=== PATIENT | male | born 1945 | race Caucasian/White ===

== ENCOUNTER → 2018-07-18 | Outpatient (CLI) | payer MEDICARE, BC | LOC: M.WC 10:00 | DX: E11.622 Type 2 diabetes mellitus with other skin ulcer (principal); L89.323 Pressure ulcer of left buttock, stage 3; L98.412 Non-pressure chronic ulcer of buttock with fat layer exposed; E11.40 Type 2 diabetes mellitus with diabetic neuropathy, unspecified; E78.00 Pure hypercholesterolemia, unspecified; I10 Essential (primary) hypertension; I25.10 Atherosclerotic heart disease of native coronary artery without angina pectoris; Z95.1 Presence of aortocoronary bypass graft; Z79.4 Long term (current) use of insulin; Z89.421 Acquired absence of other right toe(s); Z86.73 Personal history of transient ischemic attack (TIA), and cerebral infarction without residual deficits; Z79.82 Long term (current) use of aspirin ==

== ENCOUNTER → 2018-07-25 | Outpatient (CLI) | payer MEDICARE, BC | LOC: M.WC 04:56 | DX: E11.622 Type 2 diabetes mellitus with other skin ulcer (principal); L89.323 Pressure ulcer of left buttock, stage 3; L98.411 Non-pressure chronic ulcer of buttock limited to breakdown of skin; E11.40 Type 2 diabetes mellitus with diabetic neuropathy, unspecified; I25.10 Atherosclerotic heart disease of native coronary artery without angina pectoris; I10 Essential (primary) hypertension; Z89.421 Acquired absence of other right toe(s); Z86.73 Personal history of transient ischemic attack (TIA), and cerebral infarction without residual deficits ==

== ENCOUNTER → 2018-08-01 | Outpatient (CLI) | payer MEDICARE, BC | LOC: M.WC 05:01 | DX: E11.622 Type 2 diabetes mellitus with other skin ulcer (principal); L89.323 Pressure ulcer of left buttock, stage 3; L98.412 Non-pressure chronic ulcer of buttock with fat layer exposed; E11.40 Type 2 diabetes mellitus with diabetic neuropathy, unspecified; I10 Essential (primary) hypertension; I25.10 Atherosclerotic heart disease of native coronary artery without angina pectoris; Z89.421 Acquired absence of other right toe(s); Z86.73 Personal history of transient ischemic attack (TIA), and cerebral infarction without residual deficits ==

== ENCOUNTER → 2018-08-08 | Outpatient (CLI) | payer MEDICARE, BC | LOC: M.WC 04:44 | DX: E11.622 Type 2 diabetes mellitus with other skin ulcer (principal); L89.323 Pressure ulcer of left buttock, stage 3; L98.411 Non-pressure chronic ulcer of buttock limited to breakdown of skin; E11.40 Type 2 diabetes mellitus with diabetic neuropathy, unspecified; I10 Essential (primary) hypertension; I25.10 Atherosclerotic heart disease of native coronary artery without angina pectoris; Z89.421 Acquired absence of other right toe(s); Z86.73 Personal history of transient ischemic attack (TIA), and cerebral infarction without residual deficits ==

== ENCOUNTER → 2018-08-15 | Outpatient (CLI) | payer MEDICARE, BC | LOC: M.WC 05:35 | DX: E11.622 Type 2 diabetes mellitus with other skin ulcer (principal); L89.323 Pressure ulcer of left buttock, stage 3; L98.412 Non-pressure chronic ulcer of buttock with fat layer exposed; E11.40 Type 2 diabetes mellitus with diabetic neuropathy, unspecified; E78.00 Pure hypercholesterolemia, unspecified; E66.9 Obesity, unspecified; I10 Essential (primary) hypertension; I25.10 Atherosclerotic heart disease of native coronary artery without angina pectoris; Z68.34 Body mass index [BMI] 34.0-34.9, adult; Z89.421 Acquired absence of other right toe(s); Z86.73 Personal history of transient ischemic attack (TIA), and cerebral infarction without residual deficits ==

== ENCOUNTER → 2018-09-05 | Outpatient (CLI) | payer MEDICARE, BC | LOC: M.WC 08-29 05:16 | DX: E11.622 Type 2 diabetes mellitus with other skin ulcer (principal); L89.323 Pressure ulcer of left buttock, stage 3; L98.411 Non-pressure chronic ulcer of buttock limited to breakdown of skin; E11.40 Type 2 diabetes mellitus with diabetic neuropathy, unspecified; I10 Essential (primary) hypertension; I25.10 Atherosclerotic heart disease of native coronary artery without angina pectoris; Z89.421 Acquired absence of other right toe(s); Z86.73 Personal history of transient ischemic attack (TIA), and cerebral infarction without residual deficits ==

== ENCOUNTER → 2018-09-12 | Outpatient (CLI) | payer MEDICARE, BC | LOC: M.WC 04:50 | DX: E11.622 Type 2 diabetes mellitus with other skin ulcer (principal); L89.323 Pressure ulcer of left buttock, stage 3; L97.411 Non-pressure chronic ulcer of right heel and midfoot limited to breakdown of skin; E11.40 Type 2 diabetes mellitus with diabetic neuropathy, unspecified; E78.00 Pure hypercholesterolemia, unspecified; I10 Essential (primary) hypertension; I25.10 Atherosclerotic heart disease of native coronary artery without angina pectoris; Z89.421 Acquired absence of other right toe(s); Z86.73 Personal history of transient ischemic attack (TIA), and cerebral infarction without residual deficits ==

== ENCOUNTER → 2018-09-19 | Outpatient (CLI) | payer MEDICARE, BC | LOC: M.WC 09-18 10:00 | DX: E11.622 Type 2 diabetes mellitus with other skin ulcer (principal); L89.323 Pressure ulcer of left buttock, stage 3; L98.411 Non-pressure chronic ulcer of buttock limited to breakdown of skin; E11.40 Type 2 diabetes mellitus with diabetic neuropathy, unspecified; E78.00 Pure hypercholesterolemia, unspecified; I10 Essential (primary) hypertension; I25.10 Atherosclerotic heart disease of native coronary artery without angina pectoris; Z89.421 Acquired absence of other right toe(s); Z86.73 Personal history of transient ischemic attack (TIA), and cerebral infarction without residual deficits ==

== ENCOUNTER → 2018-09-26 | Outpatient (CLI) | payer MEDICARE, BC | LOC: M.WC 07:10 | DX: E11.622 Type 2 diabetes mellitus with other skin ulcer (principal); L89.323 Pressure ulcer of left buttock, stage 3; L98.418 Non-pressure chronic ulcer of buttock with other specified severity; E11.40 Type 2 diabetes mellitus with diabetic neuropathy, unspecified; I25.10 Atherosclerotic heart disease of native coronary artery without angina pectoris; I10 Essential (primary) hypertension; Z89.421 Acquired absence of other right toe(s); Z86.73 Personal history of transient ischemic attack (TIA), and cerebral infarction without residual deficits ==

== ENCOUNTER 2020-04-26 16:08 | Inpatient (IN) | payer MEDICARE, BC ==
[~2020-04-26] VITALS: Ht 180.3 cm; Wt 97.1 kg
--- NOTE | ~2020-04-26 | CON ---
[address] [address] CONSULTATION Name: LIANNE JOSHI Room: [address] ADM IN M.R.#: [id number] Admission: 04/26/20 Attend Phys: Elaine Corral Discharge: Date of : 47 Report #: [id number] THIS REPORT FOR: cc: FAM - Family physician unknown FAM - Family physician unknown ~ Godwin Moore DPM DATE OF SERVICE: 04/30/2020 CHIEF COMPLAINT: Followup of ulceration to the right plantar first metatarsal stump with concomitant lower leg cellulitis. Wound culture grew MRSA and Enterococcus faecalis. He is on parenteral linezolid 600 mg q. 12 hours with good tolerance. He is scheduled for cardiac catheterization today. He feels well, stable appetite. He denies fevers, chills, nausea or malaise. His blood cultures were negative x 2. LABORATORY DATA: WBC 7.5, RBC 4.20, hemoglobin 12.5, hematocrit 37.1, platelets 206. BUN 24, creatinine 1.2, glucose 103. PHYSICAL EXAMINATION: Wound to the right plantar foot is improved with less pale slough. There is a red granular bed with no exposed bone or tendon. There is no inflammation to the plantar periwound. The erythema to the right lower leg is substantially decreased and low-grade at this point. Foot is warm with palpable right dorsalis pedis and posterior tibial pulses with no acute vascular embarrassment. IMPRESSION: Resolving cellulitis of right lower extremity with diabetic foot ulceration, growing MRSA/Enterococcus faecalis. PLAN: The wound was cleansed, dried and dressed with Aquacel Ag and bordered foam. I ordered a Darco wound healing system shoe with a Pedorthic inlay from [facility] to be delivered and fitted at the hospital. I will follow the patient during his hospital stay and follow up with him at [facility] after discharge. By: 1520 [id number] Moore DPM /jennifer
[2020-04-26 16:20] VITALS: BP 141/71
[2020-04-26 16:50] LABS: ABSOLUTE LYMPHOCYTES 1.2 thou/uL (0.8-5.3); ABSOLUTE MONOCYTES 1.5 thou/uL (0.0-1.2); BASOPHILS 0.3 %; EOSINOPHILS 0.1 %; HEMATOCRIT 39.8 % (42.0-52.0); HEMOGLOBIN 13.3 gm/dL (14.0-18.0); LYMPHOCYTES 7.9 %; MCHC 33.4 g/dL (28.0-37.0); MCV 89.8 fL (80.0-100.0); MPV 8.7 fl. (7.2-11.1); NUCLEATED RBCS 0 /100WBC; PLATELET COUNT* 198 thou/uL (150-400); POLYS 81.7 %; RBC 4.44 mil/uL (4.50-6.00); RDW-CV 13.7 % (10.5-14.5); WBC 14.7 thou/uL (4.0-11.0)
[2020-04-26 16:59] LABS: CALCIUM 8.7 mg/dL (8.5-10.1); CREATININE 1.8 mg/dL (0.6-1.3); POTASSIUM 4.1 mmol/L (3.5-5.1)
[2020-04-26 17:02] LABS: APTT 26.8 Seconds (25.0-31.3); INR 1.1; PROTIME 11.3 Seconds (9.20-11.50)
[2020-04-26 17:10] LABS: ALBUMIN 2.9 g/dL (3.4-5.0); TOTAL BILIRUBIN 0.5 mg/dL (<0.1-1.0); TOTAL PROTEIN 8.2 g/dL (6.4-8.2)
[2020-04-26 18:57] VITALS: BP 159/71
[2020-04-27 08:00] VITALS: BP 166/82
[2020-04-27] MEDS ORDERED: GABAPENTIN600 M1 PO (08:25)
[2020-04-27] MEDS ORDERED: ADULT ONE DAIL0.4 MG PO (08:25)
[2020-04-27] MEDS ORDERED: LISINOPRIL20 MG PO (08:26)
[2020-04-27] MEDS ORDERED: CARVEDILOL25 MG PO (08:26)
[2020-04-27] MEDS ORDERED: ASA81BEC PO (08:26)
[2020-04-27] MEDS ORDERED: LIPITOR40 MG PO (08:27)
[2020-04-27] MEDS ORDERED: CHLORTHALIDONE25 MG PO (08:28)
[2020-04-27] MEDS ORDERED: HUMALOG100 UNIT/1 SUBQ (08:28)
[2020-04-27] MEDS ORDERED: LANTUS SUBQ (08:28)
[2020-04-27 12:00] VITALS: BP 162/81
--- NOTE | 2020-04-27 14:06 | EKG ---
[place] [address] ELECTROCARDIOGRAM REPORT Name: MADELYNLIANNE Sandhya Room: [address] ADM IN M.R.#: [id number] Admission: 04/26/20 Attend Phys: Kristen Parsons Discharge: Date of : 47 Date of Service: 04/26/20 1622 Report #: [id number] THIS REPORT FOR: //name// [facility] ED Test Date: 2020-04-26 Test Time: 16:22:57 Pat Name: LIANNE JOSHI Department: Room: [facility] Gender: M Billing Specialist: : [id number] Requested By: Stephan Hamm Order Number: [id number] MD: Alexsander Pulido Measurements Intervals Rudolph Rate: 102 P: 75 TN: 173 QRS: -69 QRSD: 139 T: 90 QT: 403 QTc: 526 Interpretive Statements Sinus tachycardia RBBB and LAFB Left ventricular hypertrophy No previous ECG available for comparison Electronically Signed On 04-27-2020 14:06:08 ADOPTION SERVICES MANAGER by Alexsander Pulido [email or web address] <ELECTRONICALLY SIGNED> By: Oziel Pulido MD, [facility] 04/27/20 1406 1622 1622 Oziel Pulido MD, [facility] /EPI
--- NOTE | 2020-04-27 14:09 | CON ---
[address] [address] CONSULTATION Name: LIANNE JOSHI Room: [address] IN M.R.#: [id number] Admission: 04/26/20 Attend Phys: Elaine Corral Discharge: Date of : 47 Report #: [id number] THIS REPORT FOR: cc: FAM - Family physician unknown FAM - Family physician unknown ~ Oziel Pulido MD [facility] CARDIOLOGY CONSULTATION HISTORY OF PRESENT ILLNESS: I was asked by Dr. Parsons to see this 74-year-old white male in cardiology consultation for evaluation and treatment of an elevated troponin. This man came to the Emergency Room at [facility] yesterday with leg pain, nausea and vomiting. He had cellulitis of his right leg that have been present for a couple of weeks. He has insulin-dependent diabetes, and has been seen in wound care for a diabetic ulcer on the bottom of his right foot for about 6 months at [facility]. His complaint was of swelling and redness of the right leg that started in the morning. He had nausea and vomiting for 2 days before coming in. Troponins were 0.13, 0.11, 0.10. The NT-proBNP was 2092. Chest x-ray showed no acute cardiopulmonary disease. His EKG shows sinus tachycardia, right bundle branch block, left anterior fascicular block and left ventricular hypertrophy. X-ray of the foot showed postoperative changes without evidence of acute osseous abnormality or radiographic evidence of acute osteomyelitis. Additionally, this man besides insulin-dependent diabetes mellitus, he has essential hypertension and hypercholesterolemia. He has coronary artery disease, status post coronary artery bypass graft surgery 9 years ago. HOME MEDICATIONS: Include aspirin 81 mg daily, atorvastatin 40 mg daily, carvedilol 25 mg b.i.d., chlorthalidone 25 mg daily, gabapentin 600 mg t.i.d., glargine insulin 40 units at bedtime, lispro insulin sliding scale t.i.d. I believe. He is also on lisinopril 20 mg daily and he takes a multivitamin and mineral tablet daily too. PAST MEDICAL HISTORY: As described above. REVIEW OF SYSTEMS: Negative for some 45 different complaints in 13 different categories except as above. Systems reviewed include central nervous system, general, respiratory, cardiovascular, endocrine, gastrointestinal, genitourinary, hematologic, lymphatic, allergic, immunologic, psychiatric, musculoskeletal, skin, eyes, ears, nose, mouth, and throat. Please see review of system form for details and negative in review of systems. SOCIAL HISTORY: He does not smoke, drink or use illegal drugs. FAMILY HISTORY: [place] [address] CONSULTATION Name: LIANNE JOSHI Room: [address] IN .R.#: [id number] Admission: 04/26/20 Attend Phys: Elaine Corral Discharge: Date of : 47 Report #: [id number] PHYSICAL EXAMINATION: GENERAL: He presents as well-developed, well-nourished white male in no acute distress. VITAL SIGNS: His blood pressure was 166/82, pulse was 88, respirations 16, temperature 98.3. HEENT: His head was atraumatic. Eyes clear. NECK: Supple. There is no jugular venous distention or hepatojugular reflux. Thyroid is not enlarged. There is no adenopathy. SKIN: Warm and dry. Mucous membranes are moist. LUNGS: Clear to auscultation and percussion. HEART: Revealed normal first and second heart sound. There is soft S4. There is no S3. There are no murmurs, rubs, thrills, heaves or gallops. PMI is nondisplaced. ABDOMEN: Soft, flat and nontender. No palpable masses, no organomegaly. EXTREMITIES: Reveal no cyanosis, clubbing or edema. NEUROLOGIC: The patient mentated normally, talked normally, and moved all extremities normally. IMPRESSION: 1. Elevated troponins that are likely nonspecific. He may have chronic troponin elevation. This is likely so-called type 2 infarct. This is really non-infarction, but a stress reaction. Again, he may have chronic elevated troponins. 2. Right foot ulcer. 3. Cellulitis in the right lower leg. 4. Insulin-dependent diabetes mellitus. 5. Hypercholesterolemia. 6. Essential hypertension. 7. Coronary artery disease. 8. Status post coronary artery bypass graft surgery. RECOMMENDATION: He should have a Lexiscan Cardiolite stress test and an echo. Thank you very much for asking me to see the patient. If there are any questions, please feel free to contact me. <ELECTRONICALLY SIGNED> By: Oziel Pulido MD, FACC 04/27/20 1409 1057 [id number]. Alexsander Pulido MD, FACC /nt
[2020-04-27 16:00] VITALS: BP 152/79
[2020-04-27 21:00] VITALS: BP 136/59
[2020-04-27 23:53] LABS: URINE BILIRUBIN NEGATIVE (Negative); URINE BLOOD NEGATIVE (Negative); URINE CLARITY CLEAR; URINE COLOR YELLOW; URINE GLUCOSE-RANDOM 2+ (Negative); URINE KETONES NEGATIVE (Negative); URINE LEUKOCYTES-REFLEX NEGATIVE (Negative); URINE NITRITE-REFLEX NEGATIVE (Negative); URINE PROTEIN TRACE (Negative); URINE SPECIFIC GRAVITY 1.015 (1.005-1.030); URINE UROBILINOGEN 0.2 E.U./dl (0.2-1.0)
[2020-04-28] VITALS: BP 139/62
[2020-04-28 02:05] LABS: GLYCOHEMOGLOBIN (HGB A1C) 10.2 % (4.8-5.6)
[2020-04-28 04:00] VITALS: BP 146/98
[2020-04-28 04:22] LABS: HEMATOCRIT 35.8 % (42.0-52.0); MCH 29.9 pg (26.0-34.0); MCHC 33.4 g/dL (28.0-37.0); MCV 89.5 fL (80.0-100.0); MPV 8.3 fl. (7.2-11.1); RDW-CV 13.3 % (10.5-14.5)
[2020-04-28 04:51] LABS: ALBUMIN 2.4 g/dL (3.4-5.0); CALCIUM 8.2 mg/dL (8.5-10.1); CREATININE 1.2 mg/dL (0.6-1.3); MAGNESIUM 2.1 mg/dL (1.8-2.4); POTASSIUM 3.6 mmol/L (3.5-5.1); TOTAL BILIRUBIN 0.3 mg/dL (<0.1-1.0); TOTAL PROTEIN 6.9 g/dL (6.4-8.2)
[2020-04-28 08:00] VITALS: BP 152/69
--- NOTE | 2020-04-28 14:31 | 2DMMODE ---
[place] [address] 2 D/M-MODE ECHOCARDIOGRAM Name: LIANNE JOSHI Room: [address] ADM IN .R.#: [id number] Admission: 04/26/20 Attend Phys: Kristen Parsons Discharge: Date of : 47 Date of Service: 04/28/20 1431 Report #: [id number] THIS REPORT FOR: cc: FAM - Family physician unknown FAM - Family physician unknown Lianne Moore MD [facility] ~ APPROVED REPORT Study performed: 04/28/2020 10:20:48 EXAM: Comprehensive 2D, Doppler, and color-flow Echocardiogram Patient Location: In-Patient Room #: [facility] Status: routine BSA: 2.20 HR: 75 bpm BP: 146/98 mmHg Rhythm: NSR Other Information Study Quality: Good Indications CAD Elevated Troponin 2D Dimensions IVSd: 13.92 (7-11mm) LVOT Diam: 21.44 (18-24mm) LVDd: 39.99 mm PWd: 11.33 (7-11mm) Ascending Ao: 34.31 (22-36mm) LVDs: 25.58 (25-40mm) Aortic Root: 33.06 mm Volumes Left Atrial Volume (Systole) LA ESV Index: 33.70 mL/m2 Aortic Valve AoV Peak Tio.: 1.33 m/s AO Peak Gr.: 7.09 mmHg LVOT Max P.71 mmHg AO Mean Gr.: 4.34 mmHg LVOT Mean P.39 mmHg LVOT Max V: 1.09 m/s AO V2 VTI: 30.37 cm LVOT Mean V: 0.71 m/s NICOLASA (VTI): 3.03 cm2 LVOT V1 VTI: 25.50 [place] [address] 2 D/M-MODE ECHOCARDIOGRAM Name: LIANNE JOSHI Room: [address] IN .R.#: [id number] Admission: 04/26/20 Attend Phys: Kristen Parsons Discharge: Date of : 47 Date of Service: 04/28/20 1431 Report #: [id number] AI Atlantic: 3.69 m/s2 AI PHT: 314.15 ms Mitral Valve E/A Ratio: 0.98 MV Decel. Time: 207.19 ms MV E Max Tio.: 0.97 m/s MV PHT: 60.09 ms MVA (PHT): 3.66 cm2 TDI E/Lateral E': 12.13 E/Medial E': 16.17 Medial E' Tio.: 0.06 m/s Lateral E' Tio.: 0.08 m/s Pulmonary Valve PV Peak Tio.: 1.27 m/s PV Peak Gr.: 6.43 mmHg Left Ventricle The left ventricle is normal size. There is normal LV segmental wall motion. Mild to moderate concentric left ventricular hypertrophy. Left ventricular systolic function is normal. The left ventricular ejection fraction is within the normal range. LVEF is 60%. Grade I - abnormal relaxation pattern. Right Ventricle The right ventricle is normal size. The right ventricular systolic function is normal. Atria The left atrium size is normal. The right atrium size is normal. Aortic Valve Mild aortic valve sclerosis. Mild aortic regurgitation. There is no aortic valvular stenosis. Mitral Valve Mild mitral annular calcification. Trace mitral regurgitation. No evidence of mitral valve stenosis. Tricuspid Valve The tricuspid valve is normal in structure. Trace tricuspid regurgitation. Unable to assess PA pressure[place] [address] 2 D/M-MODE ECHOCARDIOGRAM Name: LIANNE JOSHI Room: [address] IN [facility]#: [id number] Admission: 04/26/20 Attend Phys: Kristen Parsons Discharge: Date of : 47 Date of Service: 04/28/20 1431 Report #: [id number] The pulmonary valve is normal in structure. Trace pulmonic regurgitation. Great Vessels The aortic root is normal in size. IVC is normal in size and collapses >50% with inspiration. Pericardium There is no pericardial effusion. <Conclusion> The left ventricle is normal size. Mild to moderate concentric left ventricular hypertrophy. Left ventricular systolic function is normal. The left ventricular ejection fraction is within the normal range. LVEF is 60%. Grade I - abnormal relaxation pattern. The right ventricle is normal size. The left atrium size is normal. Mild aortic valve sclerosis. Mild aortic regurgitation. There is no aortic valvular stenosis. Mild mitral annular calcification. Trace mitral regurgitation. No evidence of mitral valve stenosis. The tricuspid valve is normal in structure. IVC is normal in size and collapses >50% with inspiration. There is normal LV segmental wall motion. <ELECTRONICALLY SIGNED> By: Lianne Moore MD, FACC 04/28/20 1431 1431 1431 Lianne Moore MD, FACC /INF
[2020-04-28 17:00] VITALS: BP 162/70
[2020-04-28 20:00] VITALS: BP 142/60
[2020-04-28 23:44] VITALS: BP 177/77
[2020-04-29 04:00] VITALS: BP 160/69
[2020-04-29 04:40] LABS: HEMATOCRIT 37.1 % (42.0-52.0); HEMOGLOBIN 12.5 gm/dL (14.0-18.0); MCH 29.8 pg (26.0-34.0); MCHC 33.7 g/dL (28.0-37.0); MCV 88.4 fL (80.0-100.0); MPV 8.6 fl. (7.2-11.1); RBC 4.2 mil/uL (4.50-6.00); WBC 7.5 thou/uL (4.0-11.0)
[2020-04-29 05:01] LABS: ALBUMIN 2.4 g/dL (3.4-5.0); ALKALINE PHOSPHATASE 83 U/L (46-116); ANION GAP 7 mmol/L (7-16); BUN 24 mg/dL (7-18); CALCIUM 9.5 mg/dL (8.5-10.1); CHLORIDE 101 mmol/L (98-107); CO2 29 mmol/L (21-32); CREATININE 1.2 mg/dL (0.6-1.3); GLUCOSE 103 mg/dL (70-99); MAGNESIUM 1.8 mg/dL (1.8-2.4); POTASSIUM 3.6 mmol/L (3.5-5.1); SGOT 12 U/L (15-37); SGPT 22 U/L (30-65); SODIUM 137 mmol/L (136-145); TOTAL BILIRUBIN 0.4 mg/dL (<0.1-1.0); TROPONIN-I LEVEL <0.06 ng/mL (<0.06)
[2020-04-29 16:58] VITALS: BP 135/72
--- NOTE | 2020-04-29 18:02 | CARDNUC ---
[place] [address] CARDIAC NUCLEAR IMAGING REPORT Name: LIANNE JOSHI Sandhya Room: [address] IN [facility]#: [id number] Admission: 04/26/20 Attend Phys: Kristen Parsons Discharge: Date of : 47 Date of Service: 04/29/20 1801 Report #: [id number] THIS REPORT FOR: cc: FAM - Family physician unknown FAM - Family physician unknown Oziel Pulido MD [facility] ~ APPROVED REPORT Study performed: 04/27/2020 12:00:00 Indication: Elevated troponins, RBBB, N/V, Sinus Tachycardia. Patient Location: In-Patient Room #: [facility] Stress Tech: Belinda Calzada Stress Nurse: Oliva Lomeli RN Ht: 5 ft 11 in Wt: 220 lbs BSA: 2.20 m2 BMI: 30.68 Medical History Medical History: Elevated troponins, CAD s/p CABG, RBBB, N/V, Right leg pain/cellulitis, leg ulcer, foot ulcer, neuropathy, ST, LAFB, LVH, Acute kidney injury, DM II-insulin, HTN, HLD. Medications: Atorvastatin, Carvedilol, ASA 325 Mg, Chlorthalidone, Lisinopril. Allergies: No known drug allergies Cardiac Risk Factors: Age, Diabetes (insulin), HTN, Hyperlipidemia, RBBB, elevated troponins, ST, LAFB, LVH, CAD s/p CABG. Previous Cardiac Procedures: CABG Pretest Chest Pain Characteristics: No chest pain Exercise History: Sedentary Physical Disabilities: Right foot ulcer, right leg ulcer, cellulitis, neuropathy. Meds Held (24 hrs): Carvedilol. Resting Data Rest SPECT myocardial perfusion imaging was performed in supine position 30 minutes following the intravenous injection of 10.1 mCi of Tc-99m Sestamibi. Time of rest injection: 11:50 Date: 04/28/2020 The images were gated to evaluate regional wall motion and calculate left ventricular ejection fraction. Administration Route: IV Administration Site: [place] [address] CARDIAC NUCLEAR IMAGING REPORT Name: LIANNE JOSHI Room: [address]#: [id number] Admission: 04/26/20 Attend Phys: Kristen Parsons Discharge: Date of : 47 Date of Service: 04/29/20 1801 Report #: [id number] Pharmacologic Stress Pharmacologic stress test was performed by injecting Regadenoson 0.4 mg IV push over 10-15 seconds immediately followed by the intravenous injection of 34.1 mCi of Tc-99m Sestamibi. Time of stress injection: 08:45 Date: 04/29/2020 Administration Route: IV Administration Site: Right Arm Heart Rate at time of stress injection: 104 bpm. Gated Stress SPECT was performed 40 minutes after stress injection. The images were gated to evaluate regional wall motion and calculate left ventricular ejection fraction. Prone imaging was performed. Stress Test Details Stress Test: Pharmacologic stress testing performed using 0.4 mg of regadenoson per 5 mL given IV over 10 seconds. Reason for pharmacologic stress test: Right foot ulcer, right leg ulcer, cellulitis, neuropathy.. HR Max Heart Rate (APMHR): 147 bpm Resting HR: 88 bpm Target HR (85% APMHR): 124 bpm Max HR Achieved: 104 bpm % of APMHR: 70 Recovery HR: 102 bpm HR response to stress: Normal HR response to stress BP Resting BP: 116/57 mmHg Max BP: 143/42 mmHg Recovery BP: 108/54 mmHg BP response to stress: Normal blood pressure response to stress. ECG Resting ECG: Normal sinus rhythm with right bundle branch block and left anterior fascicular block Stress ECG: Unchanged from above ST Change: None Arrhythmia: None Recovery ECG: Normal sinus rhythm right bundle branch block left anterior fascicular block Recovery ST Change: None Recovery Arrhythmia: [place] [address] CARDIAC NUCLEAR IMAGING REPORT Name: LIANNE JOSHI Room: [address]#: [id number] Admission: 04/26/20 Attend Phys: Kristen Parsons Discharge: Date of : 47 Date of Service: 04/29/20 1801 Report #: [id number] Reason for Termination: Completed protocol Stress Symptoms: Denied symptoms. Exercise duration: 00 min 00 sec Exercise capacity: 1.00 METs Nurse Comments A 74 year old male inpatient presented for a sitting Lexiscan r/t elevated troponins, CAD s/p CABG. Test well tolerated. Recovery unremarkable. Patient was stable and stated he felt good while escorted via wheelchair to Nuclear Medicine for imaging. Stress ECG Conclusion Clinical: Non-ischemic Non-diagnostic pharmacologic EKG stress due to failure to attain target HR. Study Quality Study: Good Artifact: Mild Soft tissue attenuation artifact Lung Uptake: Normal Study Data At rest, the left ventricular ejection fraction was 66%.. Post stress, the left ventricular ejection was 67%.. SSS: 25 SRS: 16 SDS: 9 TID = 1.01. Perfusion The resting study demonstrated a small mild lateral defect and a small mild inferior defect. The post-rest images demonstrated a moderate in size and moderately severe intensity lateral defect is larger and more severe than seen at rest a moderate in size and mild to moderate anterior defect that is new compared to rest and a small in size and moderate intensity inferior defect that is worse than seen at rest. Prone images were obtained and demonstrate a moderate in size mild to severe intensity lateral defect a small moderate intensity inferior defect and a moderate in size and moderate in severity anterior defect. 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 Additionally there is anterior ischemia that is moderate in size and moderate intensity Images were reviewed [place] [address] CARDIAC NUCLEAR IMAGING REPORT Name: LIANNE JOSHI Room: [address] IN M.R.#: [id number] Admission: 04/26/20 Attend Phys: Kristen Parsons Discharge: Date of : 47 Date of Service: 04/29/201800 Report #: [id number] Wall Motion Normal left ventricular wall motion. Nuclear Conclusion ECG Findings: non-diagnostic Clinical Findings: negative for ischemia Nuclear Findings: positive for ischemia Exercise Capacity: not assessed Left Ventricular Function: normal Risk Study: high There is evidence of multiple areas of ischemia and as such this is a high risk study. <Conclusion> Clinical: Non-ischemic Non-diagnostic pharmacologic EKG stress due to failure to attain target HR. <ELECTRONICALLY SIGNED> By: Oziel Pulido MD, FACC 04/29/201800 00 00 Oziel Pulido MD, FACC /INF
[2020-04-29 20:00] VITALS: BP 132/56
[2020-04-30 00:17] VITALS: BP 110/52
[2020-04-30 08:45] VITALS: BP 133/68
[2020-04-30 12:00] VITALS: BP 109/53
--- NOTE | 2020-04-30 12:38 | CON ---
[address] [address] CONSULTATION Name: LIANNE JOSHI Room: [address] IN .R.#: [id number] Admission: 04/26/20 Attend Phys: Elaine Corral Discharge: Date of : 47 Report #: [id number] THIS REPORT FOR: cc: FAM - Family physician unknown FAM - Family physician unknown ~ Godwin Moore DPM DATE OF SERVICE: 04/28/2020 ADMISSION DIAGNOSIS: Cellulitis, right leg with diabetic foot ulceration. CHIEF COMPLAINT AND HISTORY OF PRESENT ILLNESS: The patient is a 74-year-old male admitted for worsening cellulitis to the right lower extremity with concomitant diabetic plantar foot ulceration. He states the wound has been present for over 6 months, and he has been receiving outpatient treatment at [facility]. He has worn a variety of Pedorthic wound healing shoes for improved offloading. He is currently on parenteral ceftriaxone with no adverse reaction. He denies fevers, chills, nausea, or malaise. He denies right foot pain due to advanced peripheral sensory neuropathy. Wound cultures are negative thus far. X-ray was negative for osteolysis or subcutaneous emphysema. Venous Doppler result is pending, right foot wound culture pending. LABORATORY DATA: WBC 7.0, hemoglobin 12.0, hematocrit 35.8, platelets 137. BUN 34, creatinine 1.2, glucose 145. Hemoglobin A1c 10.2. Albumin 2.4. PHYSICAL EXAMINATION: There is a plantar foot ulcer to the right plantar first metatarsal stump. The wound measures roughly 2.0 x 0.3 cm. There is pale red granulation with the peripheral margin of dry callus. There is no underlying fluctuance/crepitation or expressible fluid. There is no inflammation to the periwound. The right lower leg has advanced erythema consistent with cellulitis that is not contiguous with the plantar foot ulceration. No right popliteal adenopathy or calf pain. No open leg lesions noted. His right foot is pronated with prior partial first and second ray resections with healed incisions. The remaining third, fourth and fifth toes and metatarsals are intact. The right foot is pronated with collapsed arch consistent with a remote Charcot arthropathy. No lesions noted. He has palpable right dorsalis pedis and posterior tibial pulses. No pallor/cyanosis, or signs of acute vascular embarrassment to either lower extremity. IMPRESSION: Diabetic foot ulceration, right plantar foot with lower extremity cellulitis. PLAN: There is no evidence of osteomyelitis or deep tissue and/or deep infection or abscess. I do not anticipate formal surgical [place] [address] CONSULTATION Name: LIANNE JOSHI Room: [address] IN ..#: [id number] Admission: 04/26/20 Attend Phys: Elaine Corral Discharge: Date of : 47 Report #: [id number] operating room. I did perform an excisional wound debridement with a scalpel to remove subcutaneous tissue and peripheral keratosis from the wound. This was an excisional subcutaneous tissue to the level of debridement. The wound was cleansed with saline, dried and dressed with Aquacel Ag and a bordered foam. The patient was instructed to elevate leg and remain nonweightbearing. In terms of outpatient care, he would benefit from a knee walker and a Darco Pedorthic healing shoe for improved offloading. I will consult [facility] to fit him for the Darco Pedorthic healing shoe. <ELECTRONICALLY SIGNED> By: Godwin Moore DPM 04/30/20 1238 0619 [id number] Moore DPM /nt
[2020-04-30 17:26] VITALS: BP 122/56
[2020-04-30 20:00] VITALS: BP 129/64
[2020-05-01] VITALS (14 sets, daily range): BP systolic 121–160; BP diastolic 52–78
[2020-05-01 05:06] LABS: HEMATOCRIT 37.3 % (42.0-52.0); HEMOGLOBIN 12.4 gm/dL (14.0-18.0); MCH 29.7 pg (26.0-34.0); MCHC 33.2 g/dL (28.0-37.0); MCV 89.6 fL (80.0-100.0); MPV 8.2 fl. (7.2-11.1); RBC 4.16 mil/uL (4.50-6.00); RDW-CV 12.9 % (10.5-14.5); WBC 9.2 thou/uL (4.0-11.0)
[2020-05-01 05:20] LABS: ANION GAP 6 mmol/L (7-16); BUN 30 mg/dL (7-18); CALCIUM 9.1 mg/dL (8.5-10.1); CHLORIDE 102 mmol/L (98-107); CHOLESTEROL 96 mg/dL (<200); CO2 30 mmol/L (21-32); CREATININE 1.6 mg/dL (0.6-1.3); GLUCOSE 110 mg/dL (70-99); HDL CHOLESTEROL 23 mg/dL (>40); LDL CHOLESTEROL 47 mg/dL (<100); MAGNESIUM 1.9 mg/dL (1.8-2.4); POTASSIUM 4.4 mmol/L (3.5-5.1); SODIUM 138 mmol/L (136-145); TC:HDL 4.2 Ratio (Not establshd); TRIGLYCERIDE 134 mg/dL (<150); VLDL 27 mg/dL (<40)
[2020-05-01 05:21] LABS: SERUM ASSESSMENT CLEAR
--- NOTE | 2020-05-01 15:20 | CARD ---
[address] [address] CARDIAC CATH REPORT Name: LIANNE JOSHI Room: [address] IN [facility].#: [id number] Admission: 04/26/20 Attend Phys: Elaine Corral Discharge: Date of : 47 Report #: [id number] THIS REPORT FOR: cc: FAM - Family physician unknown FAM - Family physician unknown ~ Lianne Moore MD [facility] APPROVED REPORT Study performed: 05/01/2020 10:22:52 Patient Details Patient Status: In-Patient Room #: The patient is a 74 year-old male Event Personnel Lianne Moore Car Mechanic Helper, Lanie Yee RN Foamite Mixer, Qiana Sanz RTR Scrub, Beth Guerra RTR Monitor Procedures Performed Art Access - R femoral artery* , Left Heart Cath Coronaries, Bypass Grafts LHCCORCABG, ANASTASIA Place w/wo Plasty Single LAD , Hemostasis w/ Angioseal Indication Positive stress test Risk Factors Hypercholesterolemia, Hypertension, Diabetes Previous Procedures/Diagnoses Previous CABG Admission/Lab Medications/Medications given during procedure Nitroglycerin IC 200 mcg,Nitroglycerin IC 150 mcg, Angiomax IV 14 ml, Angiomax IV 34.02 ml per hr, Adenosine IC 200 mcg, Ticagrelor PO 180 mg, Aspirin PO 162 mg Procedure Narrative The patient was brought electively to the Cardiac Catheterization Laboratory and was prepped and draped in a sterile manner. The right femoral was infiltrated with 2% Lidocaine subcutaneous anesthesia. A [place] 6 FR sheath was inserted into [place] [address] CARDIAC CATH REPORT Name: LIANNE JOSHI Room: [address] IN [facility].#: [id number] Admission: 04/26/20 Attend Phys: Elaine Corral Discharge: Date of : 47 Report #: [id number] Coronary angiography was performed using coronary diagnostic catheters. The right coronary system was accessed and visualized with a 6F JR4 catheter. The left coronary system was accessed and visualized with a 6F JL4 catheter. The left ventricle was accessed and visualized with a 6F Straight Pigtail catheter. Left ventricular/Aortic Valve gradient assessed via catheter pullback. Pre-demployment femoral angiogram was performed . Closure device was deployed with a 6 Fr Angioseal STS. The patient tolerated the procedure well and there were no complications associated with the procedure. There was no hematoma. The Saphenous vein grafts were accessed and visualized with a 6F JR4 and 6F AR1 MOD catheters. The DAVISON was accessed and visualized with a 5F IM catheter. Intraoperative Conscious Sedation Sedation start time: 11:35 Case end Time: 13:23 No sedation given. Fluoro Time: 42.2 minutes Dose: DAP [id number] cGycm2 3871 mGy Contrast Type and Amount: Visipaque 570 ml [place] Artery Percent Stenosis 1. Widely patent DAVISON graft to the LAD with 90% stenosis of the midportion of the distal LAD 2. Widely patent saphenous vein graft to the diminutive distal circumflex system 3. Widely patent saphenous vein graft to the distal right coronary artery Diagnostic Cath Left Main 70% tubular narrowing LAD 75% proximal LAD stenosis with 100% mid vessel occlusion Circumflex 75% proximal narrowing with 90% diffuse stenosis throughout the midportion of the first marginal branch Right Coronary 100% occlusion at the origin Left Ventriculography Left Ventriculography was not performed. Hemodynamics The aortic pressure is 175/63 mmHg with a mean of 107 [place] [address] CARDIAC CATH REPORT Name: LIANNE JOSHI Room: [address] IN [facility]#: [id number] Admission: 04/26/20 Attend Phys: Elaine Corrla Discharge: Date of : 46 Report #: [id number] ventricular pressure is 178/1 mmHg with a mean of mmHg. The left ventricular end diastolic pressure is 14 mmHg. PCI Technique Lesion Anticoagulation was achieved with Angiomax. Patient was preloaded with Angiomax IV 14 ml. Percutaneous coronary intervention was performed on the mid left anterior descending artery segment. The lesion stenosis prior to intervention was 90% with HUSSAIN 3 flow. A 6F IM 100CM Guide Catheter was used to engage the lm ostium. A BMW 300cm Interventional Guidewire was used to cross the lesion. BALLOON DILATION A Balloon catheter Mini Trek RX 2.0 X 12 was inserted and inflated up to 8.00atm for 12seconds. Additional Inflation: 10.00atm for 11seconds. Additional Inflation: 12.00atm for 13seconds. A Finecross Micro-[place] Catheter was utilized as well as several wires: ProwaterFlex wire 180 cm, Runthrough NS wire 300cm, and Fielder XT wire 300cm. STENT DEPLOYMENT A drug-eluting stent [place] RX Stent 2.0X18mm was inserted and inflated up to 9.00atm for 13seconds. Additional Inflation: 10.00atm for 13seconds. A 2nd drug eluting stent [place] RX Stent 2.0 x 15mm was inserted and inflated up to 9 brandon for 11 seconds; 10 brandon for 12 seconds; 11 brandon for 9 seconds. A 3rd drug eluting stent Patel RX 2.0 x 8mm was inserted and inflated up to 9 brandon for 10 seconds; 12 brandon for 7 seconds; 15 brandon for 8 seconds. POST STENT DEPLOYMENT BALLOON DILATION A Balloon catheter NC Trek RX 2.0 X 12 was inserted and inflated up to 14.00atm for 10seconds. Additional Inflation: 15.00atm for 12seconds. Additional Inflation: 16.00atm for 7seconds. Final angiography reveals 10 % stenosis with HUSSAIN 3 flow. Conclusion 1. Severe coronary artery disease characterized by the following: A 70% tubular left main coronary stenosis B 75% tubular proximal LAD stenosis with 100% mid vessel occlusion C 75% proximal circumflex narrowing with 90% diffuse stenosis of the midportion of the first marginal branch [address] [place] [address] CARDIAC CATH REPORT Name: LIANNE JOSHI Room: [address] IN M.R.#: [id number] Admission: 04/26/20 Attend Phys: Elaine Corral Discharge: Date of : 47 Report #: [id number] D 100% ostial proximal right coronary occlusion 2. Graft study characterized by the following: A widely patent DAVISON graft to the LAD with 90% stenosis of the midportion of the distal LAD system B widely patent saphenous vein graft to a diminutive distal marginal branch of the circumflex C widely patent saphenous vein graft to the distal right coronary artery 3. Moderate systemic systolic hypertension 4. Successful PCI with deployment of 3 drug-eluting stents at the site of 90% stenosis of the midportion of the distal LAD system with 10% residual narrowing and HUSSAIN-3 flow in the distal vessel Recommendations Cardiac Risk Reduction Program Aggressive Medical Therapy Medications Administered Aspirin (any) Ticagrelor Diagnostic Cath Approved by: Lianne Moore MD Date/Time: 05/01/2020 15:17:46 <ELECTRONICALLY SIGNED> By: Lianne Moore MD, [facility] 05/01/20 1520 1520 1520Lianne Moore MD, FACC /INF
[2020-05-02] VITALS: BP 140/66
[2020-05-02 04:22] LABS: HEMATOCRIT 35.5 % (42.0-52.0); HEMOGLOBIN 11.7 gm/dL (14.0-18.0); MCH 29.5 pg (26.0-34.0); MCV 89.4 fL (80.0-100.0); MPV 8.2 fl. (7.2-11.1); RBC 3.97 mil/uL (4.50-6.00); RDW-CV 13.1 % (10.5-14.5); WBC 7.7 thou/uL (4.0-11.0)
[2020-05-02 04:30] VITALS: BP 122/59
[2020-05-02 04:52] LABS: ALBUMIN 2.3 g/dL (3.4-5.0); CALCIUM 8.5 mg/dL (8.5-10.1); CREATININE 1.6 mg/dL (0.6-1.3); POTASSIUM 3.9 mmol/L (3.5-5.1); TOTAL BILIRUBIN 0.3 mg/dL (<0.1-1.0); TOTAL PROTEIN 6.3 g/dL (6.4-8.2)
[2020-05-02 05:06] LABS: TROPONIN-I LEVEL 7.43 ng/mL (<0.06)
[2020-05-02 08:34] VITALS: BP 109/45
[2020-05-02] MEDS ORDERED: LINEZOLID600 MG PO (09:04)
[2020-05-02] MEDS ORDERED: BRILINTA90 MG PO (09:04)
[2020-05-02 10:49] VITALS: BP 130/68
[2020-05-02] MEDS ORDERED: NITROGLYCERIN0.4 MG SUBLING (10:52)
[2020-05-02 11:23] VITALS: BP 130/68
--- NOTE | 2020-05-02 12:52 | EKG ---
[place] [address] ELECTROCARDIOGRAM REPORT Name: LIANNE JOSHI Room: [address] IN M.R.#: [id number] Admission: 04/26/20 Attend Phys: Kristen Parsons Discharge: 05/02/20 Date of : 47 Date of Service: 05/02/20 0436 Report #: [id number] THIS REPORT FOR: //name// [facility] Test Date: 2020-05-02 Test Time: 04:36:39 Pat Name: LIANNE JOSHI Department: Room: [address] Gender: M Welder First Class: DANNY : 1945 Requested By: Lianne Moore Order Number: [id number] Gia MD: Lianne Moore Measurements Intervals [place] Rate: 76 P: -9 OK: 202 QRS: -58 QRSD: 136 T: 93 QT: 421 QTc: 474 Interpretive Statements Sinus rhythm Probable left atrial enlargement RBBB and LAFB Nonspecific T abnormalities, lateral leads Compared to ECG 04/26/2020 16:22:57 T-wave abnormality now present Sinus tachycardia no longer present Left ventricular hypertrophy no longer present Electronically Signed On 05-02-2020 12:52:18 ARTIST'S REPRESENTATIVE by Lianne Moore [email or web address] <ELECTRONICALLY SIGNED> By: Lianne Moore MD, FACC 05/02/20 1252 0436 0436 Lianne Moore MD, FACC /EPI
== END 2020-05-02 12:50 | disposition home or self-care (01) | DRG 853 ==
LOC: M.ERS 16:08 → M.2W 17:37 → M.TBA-ER 17:37 → M.2W 19:00
PROVIDERS: Family Medicine; Internal Medicine; ADMIT Internal Medicine; ATTEND Internal Medicine
PROC: B41FYZZ Fluoroscopy of Right Lower Extremity Arteries using Other Contrast (ICD-10-PCS; principal; 2020-05-01)
PROC: 4A023N7 Measurement of Cardiac Sampling and Pressure, Left Heart, Percutaneous Approach (ICD-10-PCS; principal; 2020-05-01)
PROC: B21FYZZ Fluoroscopy of Other Bypass Graft using Other Contrast (ICD-10-PCS; principal; 2020-05-01)
PROC: 027036Z Dilation of Coronary Artery, One Artery with Three Drug-eluting Intraluminal Devices, Percutaneous Approach (ICD-10-PCS; principal; 2020-05-01)
PROC: B211YZZ Fluoroscopy of Multiple Coronary Arteries using Other Contrast (ICD-10-PCS; principal; 2020-05-01)
DX: A41.9 Sepsis, unspecified organism (principal); N17.0 Acute kidney failure with tubular necrosis; E43 Unspecified severe protein-calorie malnutrition; I21.4 Non-ST elevation (NSTEMI) myocardial infarction; L03.115 Cellulitis of right lower limb; R65.20 Severe sepsis without septic shock; L97.519 Non-pressure chronic ulcer of other part of right foot with unspecified severity; E78.00 Pure hypercholesterolemia, unspecified; E11.621 Type 2 diabetes mellitus with foot ulcer; Z20.828 Contact with and (suspected) exposure to other viral communicable diseases; I25.10 Atherosclerotic heart disease of native coronary artery without angina pectoris; B95.62 Methicillin resistant Staphylococcus aureus infection as the cause of diseases classified elsewhere; B95.2 Enterococcus as the cause of diseases classified elsewhere; Z79.4 Long term (current) use of insulin; Z79.82 Long term (current) use of aspirin; Z79.899 Other long term (current) drug therapy; Z95.1 Presence of aortocoronary bypass graft

== ENCOUNTER → 2020-05-07 | Outpatient (CLI) | payer MEDICARE, BC ==
[~2020-05-07] MED LIST: ADULT ONE DAIL0.4 MG PO; ASA81BEC PO; BRILINTA90 MG PO; CARVEDILOL25 MG PO; CHLORTHALIDONE25 MG PO; GABAPENTIN600 M1 PO; HUMALOG100 UNIT/1 SUBQ; LANTUS SUBQ; LINEZOLID600 MG PO; LIPITOR40 MG PO; LISINOPRIL20 MG PO; NITROGLYCERIN0.4 MG SUBLING
== END ==
LOC: M.WC 13:30
PROVIDERS: ATTEND Podiatrist Foot & Ankle Surgery
DX: E11.621 Type 2 diabetes mellitus with foot ulcer (principal); L97.512 Non-pressure chronic ulcer of other part of right foot with fat layer exposed; L84 Corns and callosities; E11.40 Type 2 diabetes mellitus with diabetic neuropathy, unspecified; I10 Essential (primary) hypertension; I25.10 Atherosclerotic heart disease of native coronary artery without angina pectoris; Z89.421 Acquired absence of other right toe(s); Z86.73 Personal history of transient ischemic attack (TIA), and cerebral infarction without residual deficits

== ENCOUNTER → 2020-06-04 | Outpatient (CLI) | payer MEDICARE, BC | LOC: M.WC 14:00 | PROVIDERS: ATTEND Podiatrist Foot & Ankle Surgery | DX: E11.621 Type 2 diabetes mellitus with foot ulcer (principal); L97.512 Non-pressure chronic ulcer of other part of right foot with fat layer exposed; L84 Corns and callosities; E11.40 Type 2 diabetes mellitus with diabetic neuropathy, unspecified; I87.2 Venous insufficiency (chronic) (peripheral); I10 Essential (primary) hypertension; I25.10 Atherosclerotic heart disease of native coronary artery without angina pectoris; Z89.421 Acquired absence of other right toe(s); Z86.73 Personal history of transient ischemic attack (TIA), and cerebral infarction without residual deficits ==

== ENCOUNTER → 2020-06-25 | Outpatient (CLI) | payer MEDICARE, BC | LOC: M.WC 13:59 | PROVIDERS: ATTEND Podiatrist Foot & Ankle Surgery | DX: E11.621 Type 2 diabetes mellitus with foot ulcer (principal); L97.512 Non-pressure chronic ulcer of other part of right foot with fat layer exposed; L84 Corns and callosities; E11.40 Type 2 diabetes mellitus with diabetic neuropathy, unspecified; I87.2 Venous insufficiency (chronic) (peripheral); I10 Essential (primary) hypertension; I25.10 Atherosclerotic heart disease of native coronary artery without angina pectoris; Z89.421 Acquired absence of other right toe(s); Z86.73 Personal history of transient ischemic attack (TIA), and cerebral infarction without residual deficits ==

== ENCOUNTER 2020-07-03 16:55 | Inpatient (IN) | payer MEDICARE, BC ==
[~2020-07-03] VITALS: Ht 180.3 cm; Wt 90.7 kg
--- NOTE | ~2020-07-03 | CON ---
[address] [address] CONSULTATION Name: LIANNE JOSHI Sandhya Room: [address] IN M.R.#: [id number] Admission: 07/03/20 Attend Phys: Lara Duffy MD Discharge: Date of : 47 Report #: [id number] THIS REPORT FOR: cc: FAM - No family physician/PCP FAM - No family physician/PCP ~ Godwin Moore DPM ADMISSION DIAGNOSIS: Cellulitis with diabetic foot ulcer, right foot. CHIEF COMPLAINT/HISTORY OF PRESENT ILLNESS: The patient is a 74-year-old male well known to me from outpatient wound care and treatment. He was admitted 2 days ago for increased inflammation to the right plantar foot ulcer with generalized malaise. Blood cultures are negative x 2. He is currently on parenteral linezolid and ceftriaxone. He has been afebrile with good appetite. He has remained nonweightbearing to the right foot during the hospitalization. I have been treating him as an outpatient at [facility] since he was discharged from the hospital last time. He has not been compliant in terms of offloading. He did not obtain the Darco Pedorthic wound care healing shoe that I had prescribed twice, nor has he obtained a knee walker as I had recommended. He ambulates on the foot in his diabetic shoes. He has a chronic stage 3 Charcot foot deformity with collapse of the mid foot. His current plantar foot ulcers near the plantar navicular, which is plantarly subluxed. LABORATORY DATA: WBC 8.4, RBC 3.34, hemoglobin 10.1, hematocrit 29.5, platelets 198. BUN 46, creatinine 1.7, glucose 118. PHYSICAL EXAMINATION: Right foot x-rays negative for bone destruction, subcutaneous emphysema or signs of osteomyelitis. Cultures: Right wound cultures from 04/27/2020, grew MRSA and Enterococcus faecalis. PHYSICAL EXAMINATION: VITAL SIGNS: Temperature 98.1, pulse 82, respirations 18, blood pressure 146/89. There is a diabetic mal perforant ulceration to the right plantar medial arch underlying the navicular. The wound measures roughly 2.0 x 2.0 x 0.2 cm. There is a red granular base with a thin film of translucent slough overlying the granulation. There is hypertrophic callus around the wound margin. There is localized erythema to the wound periphery consistent with cellulitis. There is no underlying fluctuance/crepitation. He has a palpable right dorsalis pedis and posterior tibial pulses with +3 nonpitting edema to the right lower extremity. No popliteal adenopathy or calf pain. Negative Homans' and Beckford's sign to both lower extremities. He has stage 3 Charcot. The right foot is a stage 3 Charcot foot with remote collapse along the TMT and mid tarsal joints. He has a completely insensate foot due to advanced diabetic peripheral sensory neuropathy. He can flex and extend the right foot in greatest strength at +4/5 in 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 PLAN: I performed an excisional wound debridement with scissors and forceps to remove subcutaneous tissue from the wound bed. There was bleeding, which was stopped with pressure. The wound was cleansed and dressed with Aquacel Ag, ABD and Kerlix gauze. I wrote the patient a new prescription for a Darco Pedorthic shoe for offloading and I encouraged him to obtain a knee walker, so that he can remain nonweightbearing to the extremity. I think it is reasonable to discharge him on oral linezolid, as there is no evidence for osteomyelitis or abscess. I will follow up with him this upcoming Tuesday at [facility]. By: 1313 1333Dlita Moore DPM /jennifer
[2020-07-03 17:08] VITALS: BP 145/73
[2020-07-03 17:37] LABS: ABSOLUTE EOSINOPHILS 0.1 thou/uL (0.0-0.7); ABSOLUTE LYMPHOCYTES 1.7 thou/uL (0.8-5.3); ABSOLUTE NEUTROPHILS 7.5 thou/uL (1.6-8.1); BASOPHILS 0.4 %; EOSINOPHILS 0.5 %; HEMATOCRIT 35.5 % (42.0-52.0); HEMOGLOBIN 11.7 gm/dL (14.0-18.0); LYMPHOCYTES 14.9 %; MCH 29.4 pg (26.0-34.0); MCHC 32.9 g/dL (28.0-37.0); MCV 89.4 fL (80.0-100.0); MONOCYTES 17.4 %; MPV 8.1 fl. (7.2-11.1); NUCLEATED RBCS 0 /100WBC; PLATELET COUNT* 232 thou/uL (150-400); POLYS 66.8 %; RBC 3.97 mil/uL (4.50-6.00); RDW-CV 16.3 % (10.5-14.5); WBC 11.3 thou/uL (4.0-11.0)
[2020-07-03 17:46] LABS: CALCIUM 9.4 mg/dL (8.5-10.1); CREATININE 1.8 mg/dL (0.6-1.3); POTASSIUM 4.2 mmol/L (3.5-5.1)
[2020-07-03 17:48] LABS: APTT 26.8 Seconds (25.0-31.3)
[2020-07-03 17:52] LABS: ALBUMIN 3.1 g/dL (3.4-5.0); TOTAL BILIRUBIN 0.5 mg/dL (<0.1-1.0); TOTAL PROTEIN 8.2 g/dL (6.4-8.2)
[2020-07-03 20:00] VITALS: BP 130/55; BP 161/69
[2020-07-04 04:22] LABS: HEMATOCRIT 28.3 % (42.0-52.0); MCH 29.7 pg (26.0-34.0); MCHC 33.4 g/dL (28.0-37.0); MCV 88.9 fL (80.0-100.0); MPV 8.4 fl. (7.2-11.1); RBC 3.18 mil/uL (4.50-6.00); RDW-CV 15.5 % (10.5-14.5); WBC 9.3 thou/uL (4.0-11.0)
[2020-07-04 04:43] LABS: ALBUMIN 2.4 g/dL (3.4-5.0); CALCIUM 8.4 mg/dL (8.5-10.1); CREATININE 1.9 mg/dL (0.6-1.3); MAGNESIUM 2.1 mg/dL (1.8-2.4); POTASSIUM 3.8 mmol/L (3.5-5.1); TOTAL BILIRUBIN 0.4 mg/dL (<0.1-1.0); TOTAL PROTEIN 6.5 g/dL (6.4-8.2)
[2020-07-04 04:56] LABS: HEMOGLOBIN 9.4 gm/dL (14.0-18.0)
[2020-07-04 08:00] VITALS: BP 120/56
--- NOTE | 2020-07-04 09:58 | EKG ---
[place] [address] ELECTROCARDIOGRAM REPORT Name: MADELYNLIANNE Sandhya Room: [address] ADM IN .R.#: [id number] Admission: 07/03/20 Attend Phys: Lara Duffy, Discharge: Date of : 47 Date of Service: 07/03/201914 Report #: [id number] THIS REPORT FOR: //name// [facility] ED Test Date: 2020-07-03 Test Time: 19:15:31 Pat Name: LIANNE JOSHI Department: Room: [facility] Gender: M Mechanical Commissioning Engineer: YAMILET : 1945 Requested By: Stephan Hamm Order Number: [id number] MD: Rufus García Measurements Intervals [place] Rate: 99 P: -5 MA: 173 QRS: -69 QRSD: 133 T: 87 QT: 392 QTc: 504 Interpretive Statements Sinus rhythm Nonspecific IVCD with LAD Abnormal lateral Q waves RBBB Artifact in lead(s) V1 and baseline wander in lead(s) V5 Compared to ECG 05/02/2020 04:36:39 no change Electronically Signed On 07-04-2020 9:58:16 PIE BAKERY LABORER by Rufus García [email or web address] <ELECTRONICALLY SIGNED> By: Rufus García MD, FACC 07/04/20 0958 14 14 Rufus García MD, FAC /EPI
[2020-07-04 20:40] VITALS: BP 135/59
[2020-07-05 04:53] LABS: HEMATOCRIT 29.5 % (42.0-52.0); HEMOGLOBIN 10.1 gm/dL (14.0-18.0); MCH 30.1 pg (26.0-34.0); MCHC 34.1 g/dL (28.0-37.0); MCV 88.4 fL (80.0-100.0); MPV 8.6 fl. (7.2-11.1); RBC 3.34 mil/uL (4.50-6.00); RDW-CV 15.6 % (10.5-14.5); WBC 8.4 thou/uL (4.0-11.0)
[2020-07-05 05:19] LABS: ALBUMIN 2.4 g/dL (3.4-5.0); CALCIUM 8.9 mg/dL (8.5-10.1); CREATININE 1.7 mg/dL (0.6-1.3); MAGNESIUM 2.1 mg/dL (1.8-2.4); TOTAL BILIRUBIN 0.2 mg/dL (<0.1-1.0); TOTAL PROTEIN 6.8 g/dL (6.4-8.2)
[2020-07-05 08:00] VITALS: BP 124/81
[2020-07-05] MEDS ORDERED: GLUCOTROL5 MG PO (10:16)
[2020-07-05] MEDS ORDERED: ZYVOX600 MG PO (10:16)
[2020-07-05 15:48] VITALS: BP 146/89
[2020-07-05 16:52] VITALS: BP 146/89
== END 2020-07-05 16:56 | disposition home or self-care (01) | DRG 622 ==
LOC: M.ERS 16:55 → M.3W 17:35 → M.TBA-ER 17:35 → M.3W 20:04
PROVIDERS: Family Medicine; ADMIT Internal Medicine; ATTEND Internal Medicine
PROC: 0JBQ0ZZ Excision of Right Foot Subcutaneous Tissue and Fascia, Open Approach (ICD-10-PCS; principal; 2020-07-05)
DX: E11.621 Type 2 diabetes mellitus with foot ulcer (principal); R65.11 Systemic inflammatory response syndrome (SIRS) of non-infectious origin with acute organ dysfunction; L03.115 Cellulitis of right lower limb; N17.0 Acute kidney failure with tubular necrosis; E11.42 Type 2 diabetes mellitus with diabetic polyneuropathy; I25.10 Atherosclerotic heart disease of native coronary artery without angina pectoris; D64.9 Anemia, unspecified; E11.22 Type 2 diabetes mellitus with diabetic chronic kidney disease; N18.9 Chronic kidney disease, unspecified; Z20.822 Contact with and (suspected) exposure to COVID-19; Z79.4 Long term (current) use of insulin; Z79.82 Long term (current) use of aspirin; Z91.14 Patient's other noncompliance with medication regimen; Z79.899 Other long term (current) drug therapy

== ENCOUNTER → 2020-07-09 | Outpatient (CLI) | payer MEDICARE, BC ==
[~2020-07-09] MED LIST changes: +GLUCOTROL5 MG PO; +ZYVOX600 MG PO
== END ==
LOC: M.WC 14:57
PROVIDERS: ATTEND Podiatrist Foot & Ankle Surgery
DX: E11.621 Type 2 diabetes mellitus with foot ulcer (principal); L97.512 Non-pressure chronic ulcer of other part of right foot with fat layer exposed; L84 Corns and callosities; E11.40 Type 2 diabetes mellitus with diabetic neuropathy, unspecified; E78.00 Pure hypercholesterolemia, unspecified; I87.2 Venous insufficiency (chronic) (peripheral); I10 Essential (primary) hypertension; I25.10 Atherosclerotic heart disease of native coronary artery without angina pectoris; Z89.421 Acquired absence of other right toe(s); Z86.73 Personal history of transient ischemic attack (TIA), and cerebral infarction without residual deficits

== ENCOUNTER → 2020-07-16 | Outpatient (CLI) | payer MEDICARE, BC | LOC: M.WC 07-02 14:00 | PROVIDERS: ATTEND Podiatrist Foot & Ankle Surgery | DX: E11.621 Type 2 diabetes mellitus with foot ulcer (principal); L97.512 Non-pressure chronic ulcer of other part of right foot with fat layer exposed; L84 Corns and callosities; E11.610 Type 2 diabetes mellitus with diabetic neuropathic arthropathy; E11.40 Type 2 diabetes mellitus with diabetic neuropathy, unspecified; E78.00 Pure hypercholesterolemia, unspecified; I87.2 Venous insufficiency (chronic) (peripheral); I10 Essential (primary) hypertension; I25.10 Atherosclerotic heart disease of native coronary artery without angina pectoris; Z89.421 Acquired absence of other right toe(s); Z86.73 Personal history of transient ischemic attack (TIA), and cerebral infarction without residual deficits ==

== ENCOUNTER → 2020-07-30 | Outpatient (CLI) | payer MEDICARE, BC | LOC: M.WC 13:54 | PROVIDERS: ATTEND Podiatrist Foot & Ankle Surgery | DX: E11.621 Type 2 diabetes mellitus with foot ulcer (principal); L97.512 Non-pressure chronic ulcer of other part of right foot with fat layer exposed; E11.42 Type 2 diabetes mellitus with diabetic polyneuropathy; I25.10 Atherosclerotic heart disease of native coronary artery without angina pectoris; I10 Essential (primary) hypertension; E78.00 Pure hypercholesterolemia, unspecified; E11.610 Type 2 diabetes mellitus with diabetic neuropathic arthropathy; L84 Corns and callosities; Z86.73 Personal history of transient ischemic attack (TIA), and cerebral infarction without residual deficits; Z79.4 Long term (current) use of insulin; Z79.82 Long term (current) use of aspirin ==

== ENCOUNTER → 2020-08-06 | Outpatient (CLI) | payer MEDICARE, BC | LOC: M.WC 12:57 | PROVIDERS: ATTEND Podiatrist Foot & Ankle Surgery | DX: E11.621 Type 2 diabetes mellitus with foot ulcer (principal); L97.512 Non-pressure chronic ulcer of other part of right foot with fat layer exposed; L84 Corns and callosities; E11.610 Type 2 diabetes mellitus with diabetic neuropathic arthropathy; E11.42 Type 2 diabetes mellitus with diabetic polyneuropathy; E78.00 Pure hypercholesterolemia, unspecified; I87.2 Venous insufficiency (chronic) (peripheral); I25.10 Atherosclerotic heart disease of native coronary artery without angina pectoris; I10 Essential (primary) hypertension; Z86.73 Personal history of transient ischemic attack (TIA), and cerebral infarction without residual deficits; Z79.4 Long term (current) use of insulin; Z79.82 Long term (current) use of aspirin ==

== ENCOUNTER → 2020-08-13 | Outpatient (CLI) | payer MEDICARE, BC | LOC: M.WC 12:53 | PROVIDERS: ATTEND Podiatrist Foot & Ankle Surgery | DX: E11.621 Type 2 diabetes mellitus with foot ulcer (principal); L97.512 Non-pressure chronic ulcer of other part of right foot with fat layer exposed; L84 Corns and callosities; E11.610 Type 2 diabetes mellitus with diabetic neuropathic arthropathy; E11.42 Type 2 diabetes mellitus with diabetic polyneuropathy; E78.00 Pure hypercholesterolemia, unspecified; I87.2 Venous insufficiency (chronic) (peripheral); I25.10 Atherosclerotic heart disease of native coronary artery without angina pectoris; I10 Essential (primary) hypertension; Z86.73 Personal history of transient ischemic attack (TIA), and cerebral infarction without residual deficits ==

== ENCOUNTER → 2020-08-20 | Outpatient (CLI) | payer MEDICARE, BC | LOC: M.WC 13:00 | PROVIDERS: ATTEND Podiatrist Foot & Ankle Surgery | DX: E11.621 Type 2 diabetes mellitus with foot ulcer (principal); L97.512 Non-pressure chronic ulcer of other part of right foot with fat layer exposed; L84 Corns and callosities; E11.610 Type 2 diabetes mellitus with diabetic neuropathic arthropathy; E11.42 Type 2 diabetes mellitus with diabetic polyneuropathy; E78.00 Pure hypercholesterolemia, unspecified; I87.2 Venous insufficiency (chronic) (peripheral); I25.10 Atherosclerotic heart disease of native coronary artery without angina pectoris; I10 Essential (primary) hypertension; Z86.73 Personal history of transient ischemic attack (TIA), and cerebral infarction without residual deficits; Z89.421 Acquired absence of other right toe(s) ==

== ENCOUNTER → 2020-08-27 | Outpatient (CLI) | payer MEDICARE, BC | LOC: M.WC 12:46 | PROVIDERS: ATTEND Podiatrist Foot & Ankle Surgery | DX: E11.621 Type 2 diabetes mellitus with foot ulcer (principal); L97.512 Non-pressure chronic ulcer of other part of right foot with fat layer exposed; L84 Corns and callosities; E11.610 Type 2 diabetes mellitus with diabetic neuropathic arthropathy; E11.42 Type 2 diabetes mellitus with diabetic polyneuropathy; E78.00 Pure hypercholesterolemia, unspecified; I87.2 Venous insufficiency (chronic) (peripheral); I25.10 Atherosclerotic heart disease of native coronary artery without angina pectoris; I10 Essential (primary) hypertension; Z86.73 Personal history of transient ischemic attack (TIA), and cerebral infarction without residual deficits; Z89.421 Acquired absence of other right toe(s) ==

== ENCOUNTER → 2020-09-03 | Outpatient (CLI) | payer MEDICARE, BC | LOC: M.WC 12:46 | PROVIDERS: ATTEND Podiatrist Foot & Ankle Surgery | DX: E11.621 Type 2 diabetes mellitus with foot ulcer (principal); L97.512 Non-pressure chronic ulcer of other part of right foot with fat layer exposed; L84 Corns and callosities; E11.40 Type 2 diabetes mellitus with diabetic neuropathy, unspecified; E78.00 Pure hypercholesterolemia, unspecified; I87.2 Venous insufficiency (chronic) (peripheral); I25.10 Atherosclerotic heart disease of native coronary artery without angina pectoris; I10 Essential (primary) hypertension; Z86.73 Personal history of transient ischemic attack (TIA), and cerebral infarction without residual deficits; Z89.421 Acquired absence of other right toe(s) ==

== ENCOUNTER 2020-09-17 14:23 | Inpatient (IN) | payer MEDICARE, BC ==
[~2020-09-17] VITALS: Ht 180.3 cm; Wt 97.5 kg
--- NOTE | ~2020-09-17 | OP ---
[address] [address] OPERATIVE REPORT Name: LIANNE JOSHI Room: [address] IN M.R.#: [id number] Admission: 09/17/20 Attend Phys: Sandhya Clark Discharge: 09/20/20 Date of : 47 Report #: [id number] THIS REPORT FOR: cc: Augusta SADLER A DO Hanon, Daniel R. DPM ~ DOC #: [id number] Godwin Moore DPM DATE OF SURGERY: 09/19/2020 SURGEON: Godwin Moore DPM PREOPERATIVE DIAGNOSIS: Abscess, right foot with nonhealing ulceration. POSTOPERATIVE DIAGNOSIS: Abscess, right foot with nonhealing ulceration. PROCEDURE: Incision and drainage right foot with intraoperative soft tissue debridement, plantar fasciectomy and ostectomy of the first metatarsal. ANESTHESIA: General LMA. INJECTABLES: 30 mL of 0.5% Marcaine plain. SUTURES: 2-0 nylon. SPECIMENS: Bone, right first metatarsal. CULTURES: 1. Bone, right first metatarsal, aerobic/anaerobic. 2. Soft tissue, left foot, aerobic/anaerobic. ESTIMATED BLOOD LOSS: Roughly 5 mL. HEMOSTASIS: Right ankle pneumatic tourniquet at 250 mmHg. COMPLICATIONS: None. DESCRIPTION OF PROCEDURE: The patient was brought to the OR and placed on the table supine with induction of general anesthesia. A well-padded right ankle pneumatic tourniquet was placed. A local anesthetic block was performed proximal to the surgical site and extremity was prepped and draped aseptically. After exsanguination and inflation of a tourniquet, a #10 scalpel was used to create a longitudinal incision distal to the chronic foot ulceration and then circumferentially around the ulcer and then extending proximally along the long axis of the foot. As I opened and dissected the subcutaneous tissue, there was expressible purulence originating from the proximal hindfoot [place] [address] OPERATIVE REPORT Name: LIANNE JOSHI Room: [address]#: [id number] Admission: 09/17/20 Attend Phys: Sandhya Clark Discharge: 09/20/20 Date of : 47 Report #: [id number] plantar fascia and flexor tendons. I thoroughly debrided the intraoperative wound of all infected tendons and the plantar fascia. I expressed purulence from the hindfoot through the central aspect of the plantar foot along the course of the plantar fascia. I thoroughly debrided the infected soft tissue from the region and used electrocautery for hemostasis. I pulse lavaged the area with 3 liters of sterile saline with bacitracin. The wound was packed. I circumscribed the existed ulcer margins. The proximal and distal aspects of the incision were sutured with 2-0 nylon and the central plantar wound was left open and packed with Aquacel Ag. The foot was then cleansed, dried, and dressed with fluffs, ABDs, Kerlix, and Luis bandage. The tourniquet was deflated with normal neurovascular return. The patient left the OR with no pain or complications noted. KIP Johnson/TERRELL/BENITO By: 1321 1351Dlita Moore DPM /nt
--- NOTE | ~2020-09-17 | CON ---
[place] [address] CONSULTATION Name: LIANNE JOSHI Room: [address] IN M.R.#: [id number] Admission: 09/17/20 Attend Phys: Sandhya Clark Discharge: Date of : 47 Report #: [id number] THIS REPORT FOR: cc: Augusta SADLER A DO Hanon, Daniel R. DPM ~ DOC #: [id number] Godwin Moore DPM DATE OF CONSULTATION: 09/18/2020 ADMISSION DIAGNOSIS: Right diabetic foot ulceration with deep tissue infection and sepsis. CHIEF COMPLAINT/HISTORY OF PRESENT ILLNESS: A 74-year-old male well known to me from outpatient treatment at [facility]. I had him directly admitted yesterday from the wound care center for newly developed right foot infection with clinical signs and symptoms of sepsis. He had nausea and vomiting for the last 1-2 days with several episodes of vomiting in the wound care center. He denied fever, chills, night sweats, shortness of breath, chest pain or foot pain. He was given a dose of vancomycin and ceftriaxone. His blood cultures are positive for gram-positive cocci. Right foot MRI shows abscess with subcutaneous emphysema. No signs of osteomyelitis. Foot x-ray negative for bone destruction. LABORATORY DATA: WBC 19.4, hemoglobin 11.6, hematocrit 35.4, platelets 266. ESR greater than 140. BUN 37, creatinine 1.6, glucose 225. PHYSICAL EXAMINATION: VITAL SIGNS: Temperature 97.8, pulse 101, respirations 18, blood pressure 128/58. EXTREMITIES: There is a penetrating ulceration to the right plantar forefoot with localized erythema and edema extending to the medial aspect of the foot. The foot is somewhat fluctuant with no crepitation. There is scant serous drainage on his bandage, I am unable to express any purulence. The jayy-wound skin has immediate capillary refill. No calf pain or popliteal tenderness. Negative Homans or Beckford sign bilaterally. No signs of acute vascular embarrassment to the right foot. IMPRESSION: 1. Diabetic foot ulceration with abscess, right foot. 2. Septicemia. 3. Type 2 diabetes mellitus. 4. Peripheral neuropathy. PLAN: The patient requires incision and drainage [place] [address] CONSULTATION Name: LIANNE JOSHI Room: [address] IN [facility]#: [id number] Admission: 09/17/20 Attend Phys: Sandhya Clark Discharge: Date of : 47 Report #: [id number] will keep him n.p.o. past midnight and perform a surgical procedure tomorrow in the operating room. KIP Johnson By: 1900 2355Godwin Moore DPM /jennifer
--- NOTE | ~2020-09-17 | CON ---
[address] [address] CONSULTATION Name: LIANNE JOSHI Room: [address] IN M.R.#: [id number] Admission: 09/17/20 Attend Phys: Sandhya Clark Discharge: Date of : 47 Report #: [id number] THIS REPORT FOR: cc: Augusta SADLER A DO Hanon, Daniel R. DPM ~ DOC #: [id number] Godwin Moore DPM DATE OF CONSULTATION: 09/20/2020 CHIEF COMPLAINT: Postoperative day #1 for incision and drainage, right foot with wound debridement and ostectomy. HISTORY OF PRESENT ILLNESS: The patient had an abscess located at the plantar midfoot and hind foot, complicated by type 2 diabetes mellitus with peripheral neuropathy and Charcot foot deformity. He feels much better today. He has remained afebrile last night until present. He has good appetite, minimal foot pain. Initial blood cultures positive for group B strep, subsequent cultures from yesterday have no growth so far. He has some lower back pain, may have a back MRI pending approval. Surgical cultures are pending, Gram stain shows gram-negative rods and gram-positive cocci. He is on parental ceftriaxone and oral Flagyl. He had a slight increase in creatinine since admission. LABORATORY DATA: WBC 10.5, RBC 2.89, hemoglobin 8.7, hematocrit 25.7, platelets 179, BUN 64, creatinine 2.5, glucose 141. PHYSICAL EXAMINATION: VITAL SIGNS: Temperature 98.3, pulse 82, respirations 18, blood pressure 108/49. EXTREMITIES: Postoperative wound has no active bleeding with sanguineous drainage on his bandage. The proximal and distal surgical incisions are well coapted with no pallor/cyanosis or signs of acute vascular embarrassment. No underlying fluctuance or crepitation. The erythema has substantially decreased along the medial to plantar foot since preop. He has palpable left dorsalis pedis and posterior tibial pulses. IMPRESSION: Deep tissue infection, status post surgical debridement. PLAN: The wound was flushed and repacked with Aquacel AG and covered with ABDs, Kerlix and Luis bandage. The patient remains strictly nonweightbearing to the extremity, awaiting surgical cultures and pathology. I will order physical therapy to start tomorrow. Godwin Moore DPM [facility] [address] CONSULTATION Name: LIANNE JOSHI Room: [address]#: [id number] Admission: 09/17/20 Attend Phys: Sandhya Clark Discharge: Date of : 47 Report #: [id number] By: 0947 Betsy Moore DPM /jennifer
[2020-09-17 14:42] VITALS: BP 197/94
[2020-09-17 15:07] LABS: HEMATOCRIT 35.4 % (42.0-52.0); HEMOGLOBIN 11.6 gm/dL (14.0-18.0); MCHC 32.8 g/dL (28.0-37.0); MCV 88.4 fL (80.0-100.0); MPV 7.7 fl. (7.2-11.1); NUCLEATED RBCS 0 /100WBC; PLATELET COUNT* 266 thou/uL (150-400); RDW-CV 15.1 % (10.5-14.5); WBC 19.4 thou/uL (4.0-11.0)
[2020-09-17 15:19] LABS: CALCIUM 9.3 mg/dL (8.5-10.1); CREATININE 1.6 mg/dL (0.6-1.3); POTASSIUM 4.4 mmol/L (3.5-5.1)
[2020-09-17 15:23] LABS: APTT 26.3 Seconds (25.0-31.3); INR 1.2; PROTIME 12.2 Seconds (9.20-11.50)
[2020-09-17 15:24] LABS: ALBUMIN 3.1 g/dL (3.4-5.0); TOTAL BILIRUBIN 0.8 mg/dL (<0.1-1.0); TOTAL PROTEIN 9.5 g/dL (6.4-8.2)
[2020-09-17 15:52] LABS: ABSOLUTE LYMPHOCYTES 0.2 thou/uL (0.8-5.3); ABSOLUTE MONOCYTES 0.6 thou/uL (0.0-1.2); ABSOLUTE NEUTROPHILS 18.6 thou/uL (1.6-8.1); PLATELET ESTIMATE ADEQUATE
[2020-09-17 15:53] LABS: HYPOCHROMASIA Occasional
[2020-09-17 16:25] LABS: ESR (SEDRATE) > 140 mm/hr (0-20)
[2020-09-17 17:30] VITALS: BP 167/78
[2020-09-17 17:35] VITALS: BP 177/79
--- NOTE | 2020-09-17 19:06 | NUR ---
PATIENT ARRIVED FROM ER. PATIENT SETTLED TO ROOM. HISTORY, ASSESSMENT AND VITALS COMPLETED AND DOCUMENTED. PATIENT IS POOR HISTORIAN. PATIENT DENIES ANY NAUSEA AT THIS TIME. PATIENT TOLERATED REGULAR DIET. DR GLASGOW NOTIFIED AND ORDERS RECEIVED. PATIENTIS TACHYCARDIC, DR ORDOÑEZ NOTIFIED AND FLUID BOLUS INFUSING. PATIENT DENIES ANY NEEDS AT THIS TIME. BED ALARM ON. CALL LIGHT WITHIN REACH.
[2020-09-17 20:30] VITALS: BP 194/84
[2020-09-17 23:47] VITALS: BP 151/77
[2020-09-18 03:31] VITALS: BP 174/79
--- NOTE | 2020-09-18 04:53 | NUR ---
ASSUMED PATIENT CARE AT 1900. PATIENT ALERT AND ORIENTED TIMES FOUR WITH SOME CONFUSION. NO COMPLAINTS OF PAIN OR DISCOMFORT NOTED. DR. GALVEZ FOR POSITIVE BLOOD CULTURES. LEAD SCIENTIST AND HOURLY ROUNDING COMPLETED CHARTED.
[2020-09-18 05:05] LABS: URINE BILIRUBIN NEGATIVE (Negative); URINE BLOOD 2+ (Negative); URINE CLARITY CLEAR; URINE COLOR YELLOW; URINE GLUCOSE-RANDOM TRACE (Negative); URINE KETONES NEGATIVE (Negative); URINE LEUKOCYTES-REFLEX NEGATIVE (Negative); URINE NITRITE-REFLEX NEGATIVE (Negative); URINE PROTEIN 3+ (Negative); URINE SPECIFIC GRAVITY >= 1.030 (1.005-1.030); URINE UROBILINOGEN 0.2 E.U./dl (0.2-1.0)
[2020-09-18 05:15] LABS: COARSE GRANULAR CASTS 0-3 Few /LPF (None Seen); MUCUS 4-6 Moderate strn/LPF (None Seen); SQUAMOUS 0-3 Few /LPF (0-3); URINE RBC 3-10 Few /HPF (0-2); URINE WBC-REFLEX None Seen /HPF (0-5)
[2020-09-18 05:33] LABS: AMORPHOUS URATES Few /LPF (None Seen)
[2020-09-18 08:00] VITALS: BP 168/76
[2020-09-18 12:00] VITALS: BP 153/74
--- NOTE | 2020-09-18 12:44 | EKG ---
[place] [address] ELECTROCARDIOGRAM REPORT Name: MADELYNLIANNE DELACRUZ Room: [address] ADM IN .R.#: [id number] Admission: 09/17/20 Attend Phys: Matt Cisneros Discharge: Date of : 47 Date of Service: 09/17/20 1530 Report #: [id number] THIS REPORT FOR: //name// [facility] ED Test Date: 2020-09-17 Test Time: 15:30:00 Pat Name: LIANNE JOSHI Department: Room: [facility] Gender: M Robotics Testing Technician: LISA : 1945 Requested By: Roseline Cherry Order Number: [id number] MD: Rufus García Measurements Intervals [place] Rate: 117 P: 8 W[place]: 128 QRS: -70 QRSD: 131 T: 89 QT: 351 QTc: 490 Interpretive Statements Sinus tachycardia RBBB and LAFB Compared to ECG 07/03/2020 19:15:31 Left anterior fascicular block now present Sinus rhythm no longer present Electronically Signed On 09-18-2020 12:44:36 CDT by Rufus García [email or web address] <ELECTRONICALLY SIGNED> By: Rufus García MD, [facility] 09/18/20 1244 1530 1530 Rufus García MD, [facility] /EPI
--- NOTE | 2020-09-18 13:45 | NUR ---
Pt is A&O. Resides at home with friends. Independent. Pt admitted from [facility] wound center. Pt has a walker for mobility. Podiatry consulted. Positive blood cultures. On ivabx. No hx of HH or SNF. ?HH at dc. Following for dc needs.
[2020-09-18 16:00] VITALS: BP 128/58
[2020-09-18 20:30] VITALS: BP 129/53
[2020-09-19] VITALS: BP 100/64
[2020-09-19 03:59] LABS: ABSOLUTE LYMPHOCYTES 0.9 thou/uL (0.8-5.3); ABSOLUTE MONOCYTES 1.7 thou/uL (0.0-1.2); ABSOLUTE NEUTROPHILS 11.9 thou/uL (1.6-8.1); BASOPHILS 0.1 %; EOSINOPHILS 0.1 %; HEMATOCRIT 27.7 % (42.0-52.0); LYMPHOCYTES 6.4 %; MCH 29.1 pg (26.0-34.0); MCHC 32.6 g/dL (28.0-37.0); MONOCYTES 11.9 %; MPV 8.2 fl. (7.2-11.1); NUCLEATED RBCS 0 /100WBC; PLATELET COUNT* 203 thou/uL (150-400); POLYS 81.5 %; RBC 3.12 mil/uL (4.50-6.00); WBC 14.6 thou/uL (4.0-11.0)
[2020-09-19 04:24] VITALS: BP 109/40
[2020-09-19 05:01] LABS: HEMOGLOBIN 9.1 gm/dL (14.0-18.0)
--- NOTE | 2020-09-19 06:14 | NUR ---
PT A&O, ON RA. MEDS GIVEN ORDERED. NORCO GIVEN FOR BACK PAIN. DRESSING TO RT FOOT INTACT. SHIELDS IN PLACE DRAINING TEGAN URINE. NPO SINCE MIDNIGHT FOR I&D. PT SLEPT MOST OF THE NIGHT. CALL LIGHT WITHIN REACH. WILL CONTINUE TO MONITOR.
[2020-09-19 08:52] VITALS: BP 100/41
--- NOTE | 2020-09-19 14:16 | NUR ---
Pt having surgery today. No weekend dc planned. Med surg status. ?HH at dc.
[2020-09-19 18:26] VITALS: BP 133/58
[2020-09-20] VITALS: BP 120/47
[2020-09-20 04:00] VITALS: BP 108/49
[2020-09-20 05:51] LABS: ABSOLUTE MONOCYTES 1.5 thou/uL (0.0-1.2); BASOPHILS 0.2 %; CALCIUM 8.1 mg/dL (8.5-10.1); CREATININE 2.5 mg/dL (0.6-1.3); EOSINOPHILS 0.1 %; HEMATOCRIT 25.7 % (42.0-52.0); HEMOGLOBIN 8.7 gm/dL (14.0-18.0); LYMPHOCYTES 9.4 %; MCH 30.1 pg (26.0-34.0); MCHC 33.9 g/dL (28.0-37.0); MCV 88.8 fL (80.0-100.0); MONOCYTES 14.1 %; MPV 8.5 fl. (7.2-11.1); NUCLEATED RBCS 0 /100WBC; PLATELET COUNT* 179 thou/uL (150-400); POLYS 76.2 %; POTASSIUM 3.6 mmol/L (3.5-5.1); RBC 2.89 mil/uL (4.50-6.00); RDW-CV 15.1 % (10.5-14.5); WBC 10.5 thou/uL (4.0-11.0)
--- NOTE | 2020-09-20 07:05 | NUR ---
PATIENT HAS SLEPT WELL THROUGHOUT MOST OF THE NIGHT. VSS ON 3L. PATIENT PLACED ON 3L D/T DECREASED OXYGEN SATURATION. PATIENT HAS NOT BEEN UP DURING THE SHIFT. DRESSING TO RIGHT LOWER EXTREMITY IS C/D/I AND ELEVATED ON PILLOW. SHIELDS TO DEPENDENT DRAINAGE WITH TEGAN COLORED URINE OUTPUT. IV IN LEFT FOREARM-SL. PATIENT AGITATED AT TIMES AND STATES THAT HE WANTS TO GO HOME AND WANTS SHIELDS CATHETER OUT. NO C/O PAIN AND DENIES NEEDING PAIN MEDICATION. FALL PRECAUTIONS IN PLACE AND HOURLY ROUNDS MADE. WILL CONTINUE WITH PLAN OF CARE AND NURSING TO MONITOR.
[2020-09-20 11:09] VITALS: BP 109/50
[2020-09-20 16:00] VITALS: BP 120/50
--- NOTE | 2020-09-20 16:44 | NUR ---
CM INFORMED BY THE PHYSICIAN OF THE NEED TO TRANSFER PT TO EITHER [facility] OR [facility]. REASON: PT NEEDING HIGHER LEVEL OF CARE/SPINE/NEURO SURGEON FOR VERTEBRAL DISCITIS AND OSTEOMYELITIS. BED: MED/TELE. SENDING PHYSICIAN: DR PARDO. CM SPOKE TO TRANSFER TEAM TO INFORM OF THE NEED TO TRASFER PT, AND FAXED PT'S CLINICAL INFO. CM INFORMED RADIOLOGY OF THE NEED TO UPLOAD ALL IMAGING TO THE [facility]. CM AWAITING A RETURN CALL FOR ACCEPTANCE. CM UPDATED RN AND TIN STACKER OF PLAN AND STARTED THE [employer] AND AMBULANCE TRANSFER FORMS. CM WILL REMAIN AVAILABLE TO ASSIST AND FOLLOW NEEDED. TRANSFER TEAM PHONE: [phone] FAX: [phone]
--- NOTE | 2020-09-20 16:56 | NUR ---
CHECKING ON PT REGARDING P.T. EVAL AND TREAT ORDERS FOR 09/21. NSG STATES PT IS NOW ON BEDREST AND THE PLAN IS FOR HIM TO TRANSFER TO [facility] SOON IT CAN BE ARRANGED. THEREFORE, WILL NOT PLAN ON P.T. EVAL ON 09/21. PLEASE LET P.T. KNOW IF PLAN FOR PT CHANGES AND HE NEEDS TO BE SEEN ON 09/21.
--- NOTE | 2020-09-20 18:39 | NUR ---
PT A&Ox4. VITALS STABLE. WAITING TO GET ACCEPTED TO [facility] OR [facility] FOR TRANSFER. 3LO2. IV PATENT. PAIN PARTIALLY CONTROLLED. BEDREST. FALL PRECAUTIONS IN PLACE. WILL CONTINUE TO MONITOR.
[2020-09-20 20:30] VITALS: BP 122/51
--- NOTE | 2020-09-20 23:10 | NUR ---
PATIENT ACCEPTED FOR TRANSFER TO [facility]. PATIENT AND SIG OTHER UPDATED AND PATIENT IN AGREEMENT. REPORT CALLED TO SILVIA RAJPUT RN AT [facility] FOR ROOM 6228 DESIGNATED BY [facility] TRANSFER TEAM FOR ADMISSION UNDER DR. ANN. PATIENT TRANSFERED OUT AT [phone] BY AMBULANCE IN STABLE CONDITION WITH ALL BELONGINGS.
--- NOTE | 2020-09-24 11:08 | PATH ---
[facility] [address] [place] [address] PATHOLOGY RPT PROCEDURE Name: LIANNE RIVAS Room: [address] IN M.R.#: [id number] Admission: 09/17/20 Date of : 47 Discharge: 09/20/20 Report #: [id number] Path Case #: [id number] [facility] Accession Number: [id number] . 01 Material submitted: . foot - RIGHT FOOT BONE. Modifiers: right . 01 Clinical history: . RIGHT FOOT WOUND RIGHT FOOT CELLULITIS,TACHYCARDIA,N/V NO KNOWN DRUG ALLERGIES . 02 Diagnosis: Right foot bone: - Benign and viable osteocartilaginous segment with focal/low-grade osteomyelitis and with attached benign fibrovascular connective tissue showing mild acute and chronic inflammation. (TERRI:dre; 09/23/2020) QMS 09/23/2020 1303 Local . 02 Electronically signed: . Bacilio Yost MD, Pathologist NPI- [id number] . 01 Gross description: . Received in formalin labeled "Lianne Rivas and bone right foot". Received is a plate-like bone fragment measuring 3.0 x 2.0 x 0.8 cm. The articular surface is concave, smooth to worn with a diameter of 0.4 cm. The bone cortex is spongy to dense with a hemorrhagic region measuring 0.8 x 0.4 x 0.4 cm. The attached soft tissue is guzman-brizuela congested/hemorrhagic. The specimen is entirely submitted in cassettes A1 through A4 after decalcification.(BLJ; 09/22/2020) J/[facility] 09/23/2020 1639 Local . 02 Pathologist provided ICD-10: M86.8X7, M79.89 . 02 CPT . 315869, 160139 Specimen Comment: A courtesy copy of this report has been sent to [phone] Specimen Comment: [id number], Specimen Comment: Report sent to DR ORDOÑEZ,DR GLASGOW / DR LYN Performed at: [address] [id number] MD Cedric Mccullough MD Phone: [phone] Performed at: [address] [place] [address] PATHOLOGY RPT PROCEDURE Name: MADELYNLIANNE Room: [address] IN ..#: [id number] Admission: 09/17/20 Date of : 47 Discharge: 09/20/20 Report #: [id number] Path Case #: [id number] [address] [place] [id number] MD Bacilio Yost MD Phone: [phone]
== END 2020-09-20 21:20 | disposition short-term general hospital (02) | DRG 853 ==
LOC: M.TBA-ER 16:19 → M.2W 16:19 → M.ORTHSURG 09-19 19:39
PROVIDERS: Internal Medicine; Nurse Practitioner Family; ADMIT Internal Medicine; ATTEND Internal Medicine
PROC: 0QBN0ZZ Excision of Right Metatarsal, Open Approach (ICD-10-PCS; principal; 2020-09-19)
PROC: 0JBR0ZZ Excision of Left Foot Subcutaneous Tissue and Fascia, Open Approach (ICD-10-PCS; 2020-09-19)
DX: A40.8 Other streptococcal sepsis (principal); N17.0 Acute kidney failure with tubular necrosis; L03.115 Cellulitis of right lower limb; L02.611 Cutaneous abscess of right foot; E44.1 Mild protein-calorie malnutrition; N17.9 Acute kidney failure, unspecified; M46.20 Osteomyelitis of vertebra, site unspecified; Z68.30 Body mass index [BMI] 30.0-30.9, adult; I25.10 Atherosclerotic heart disease of native coronary artery without angina pectoris; E11.22 Type 2 diabetes mellitus with diabetic chronic kidney disease; N18.9 Chronic kidney disease, unspecified; D64.9 Anemia, unspecified; I12.9 Hypertensive chronic kidney disease with stage 1 through stage 4 chronic kidney disease, or unspecified chronic kidney disease; E11.42 Type 2 diabetes mellitus with diabetic polyneuropathy; E11.69 Type 2 diabetes mellitus with other specified complication; Z20.822 Contact with and (suspected) exposure to COVID-19; Z95.5 Presence of coronary angioplasty implant and graft; Z79.82 Long term (current) use of aspirin; Z79.4 Long term (current) use of insulin; Z79.899 Other long term (current) drug therapy